=== PATIENT | male | born 1980 | race American Indian/Alaskan Native ===

== ENCOUNTER 2022-06-07 17:06 | Emergency (ER) | payer OTHER ==
[2022-06-07] MEDS ORDERED: ACETAMINOPHEN W/CODEINE 300-30 MG TAB PO ONE (21:14)
[2022-06-07] MEDS ORDERED: KETOROLAC 10 MG TAB PO ONE (21:14)
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
[2022-06-07 21:37] VITALS: BP 120/78
== END 2022-06-07 21:36 | disposition home or self-care (01) ==
LOC: ED 17:06
DX: R51.9 Headache, unspecified (principal); V89.2XXA Person injured in unspecified motor-vehicle accident, traffic, initial encounter; Y93.89 Activity, other specified; Y92.89 Other specified places as the place of occurrence of the external cause; Y99.8 Other external cause status
CPT/HCPCS: 99282